=== PATIENT | female | born 1985 | race Caucasian/White ===

== ENCOUNTER → 2016-11-18 | Outpatient (CLI) | payer OTHER ==
[~2016-11-18] MED LIST: AMOXICILLIN500 MG PO; BIAXIN500 MG PO; CIPRODEX 0.3%-7.5 ML OT; CLARITIN10 MG PO; FLEXERIL10 MG PO; HYDROCODONE BIT1 T11 PO; NAPROSYN500 MG PO; PROZAC20 MG PO; VITAMIN D32000 I1 PO
== END | disposition home or self-care (01) ==
LOC: US 10:07
DX: R10.11 Right upper quadrant pain (principal)

== ENCOUNTER 2016-12-21 09:24 | Emergency (ER) | payer OTHER ==
[~2016-12-21] VITALS: Ht 160 cm; Wt 86.2 kg
[2016-12-21] MEDS ORDERED: Motrin,Rufen800 MG PO (09:43)
[2016-12-21] MEDS ORDERED: AUGMENTIN 875875 MG PO (09:43)
== END 2016-12-21 10:12 | disposition home or self-care (01) ==
LOC: ED 09:24
DX: J02.9 Acute pharyngitis, unspecified (principal); F17.200 Nicotine dependence, unspecified, uncomplicated; Z98.51 Tubal ligation status; Z98.890 Other specified postprocedural states; Z79.899 Other long term (current) drug therapy

== ENCOUNTER 2022-03-12 16:04 | Emergency (ER) | payer OTHER ==
[~2022-03-12] VITALS: Ht 160 cm; Wt 72.6 kg
[~2022-03-12 16:04] MED LIST changes: +AUGMENTIN 875875 MG PO; +Motrin,Rufen800 MG PO
[2022-03-12] MEDS ORDERED: AUGMENTIN XR 11 EACH PO (16:37)
== END 2022-03-12 17:00 | disposition home or self-care (01) ==
LOC: ED 16:04
DX: H66.93 Otitis media, unspecified, bilateral (principal); Z79.899 Other long term (current) drug therapy; Z98.890 Other specified postprocedural states; Z98.51 Tubal ligation status

== ENCOUNTER → 2023-07-29 | Outpatient (CLI) | payer OTHER ==
[~2023-07-29] MED LIST changes: +AUGMENTIN XR 11 EACH PO
== END | disposition home or self-care (01) ==
LOC: LAB 14:34
PROVIDERS: ATTEND Nurse Practitioner Family
DX: J02.9 Acute pharyngitis, unspecified (principal)